=== PATIENT | female | born 1980 | race Caucasian/White ===

== ENCOUNTER 2020-03-14 05:39 | Inpatient (IN) | payer BC ==
[~2020-03-14] VITALS: Ht 162.6 cm; Wt 61.2 kg
[2020-03-14] VITALS (27 sets, daily range): BP systolic 96–121; BP diastolic 54–75
[~2020-03-14 05:39] MED LIST: NO HOME MEDS; ceFAZolin 1GM/D5W- ADD-VANTAGE 50 ML IV ONE; famotidine 20mg tablet PO ONE; ringers solution, lacted 1,000 ML IV SCH
[2020-03-14] MEDS ORDERED: LIDOcaine 1% (10mg/ml) 2ml vial ONE (05:52)
[2020-03-14 06:32] LABS: BASOPHILS % (AUTO) 0.7 % (0-1); EOSINOPHILS # (AUTO) 0.1 X10'3 (0-0.9); EOSINOPHILS % (AUTO) 1.9 % (0-6); LYMPHOCYTES # (AUTO) 2.2 X10'3 (1.1-4.8); LYMPHOCYTES % (AUTO) 38.7 % (21-51); MEAN CORPUSCULAR HEMOGLOBIN 30.7 PG (27.0-31.0); MEAN CORPUSCULAR HGB CONC 34.2 g/dL (33.0-36.5); MEAN CORPUSCULAR VOLUME 89.7 FL (78-98); MEAN PLATELET VOLUME 7.2 FL (7.4-10.4); MONOCYTES # (AUTO) 0.4 X10'3 (0-0.9); NEUTROPHILS # (AUTO) 2.9 X10'3 (1.8-7.7); NEUTROPHILS % (AUTO) 51.7 % (42-75); PRE OP HEMATOCRIT 43.2 % (35.0-45.0); PRE OP HEMOGLOBIN 14.8 g/dL (12.0-16.0); PRE OP PLATELET COUNT 264 X10'3 (140-440); RED BLOOD COUNT 4.81 X10'6 (4.20-5.60); RED CELL DISTRIBUTION WIDTH 13.1 % (11.5-14.5)
[2020-03-14 06:41] LABS: PRE OP PROTIME 10.8 SECONDS (9.0-12.0)
[2020-03-14 06:45] LABS: ALBUMIN/GLOBULIN RATIO 1.3 (1.1-1.5); ALKALINE PHOSPHATASE 63 IU/L (46-116); BLOOD UREA NITROGEN 18 MG/DL (7-18); BUN/CREATININE RATIO 18.6 (6.6-38.0); CHLORIDE 107 MMOL/L (99-107); CREATININE 0.97 MG/DL (0.40-0.90); PRE OP ALT 14 U/L (30-65); PRE OP ANION GAP 9 (8-16); PRE OP AST 13 U/L (10-37); PRE OP BILIRUB, TOTAL 0.4 MG/DL (0.0-1.0); PRE OP GLUCOSE 87 MG/DL (70-104); PRE OP POTASSIUM 3.5 MMOL/L (3.4-5.1); PRE OP SODIUM 143 MMOL/L (135-145); TOTAL CARBON DIOXIDE 27.2 MMOL/L (24-32); TOTAL PROTEIN 7.2 G/DL (6.4-8.2); eGFR 65 ML/MIN
[2020-03-14] MEDS ORDERED: BUPIVAcaine/PF 2.5 mg/ml (0.25%) 30ml vial ONE (06:57)
[2020-03-14] MEDS ORDERED: BUPIVACAINE liposomal/PF 13.3 MG/ML vial IM ONE (06:57)
[2020-03-14] MEDS ORDERED: midazolam 2 mg/2 ml injection ONE (07:01)
[2020-03-14] MEDS ORDERED: fentaNYL /PF 50mcg/ml 5ml ampule ONE (07:06)
[2020-03-14] MEDS ORDERED: sevoflurane 250ml liquid IH ONE (07:12)
[2020-03-14] MEDS ORDERED: ringers solution, lacted 1,000 ML IV SCH (07:14)
[2020-03-14] MEDS ORDERED: ondansetron/PF 4mg/2ml inj IV PRN (07:15)
[2020-03-14] MEDS ORDERED: meperidine/PF 25mg/ml syringe IV PRN ×2 (07:15)
[2020-03-14] MEDS ORDERED: acetaminophen 1,000mg/100ml IV 100 ML IV PRN (07:15)
[2020-03-14] MEDS ORDERED: HYDROmorphone inj. 0.5 MG/0.5 ML DISP.SYRIN IV PRN ×2 (07:15)
[2020-03-14] MEDS ORDERED: proCHLORperazine 10 MG/2 ml inj IV PRN (07:15)
[2020-03-14] MEDS ORDERED: propofol inj 20 ML IV ONE (07:49)
[2020-03-14] MEDS ORDERED: LIDOcaine 1%/PF 5ML 10 MG/ML VIAL ONE (07:49)
[2020-03-14] MEDS ORDERED: LIDOcaine 2% 5ml jelly ONE (07:49)
[2020-03-14] MEDS ORDERED: rocuronium 10mg/ml inj IV ONE (07:49)
[2020-03-14] MEDS ORDERED: dexamethasone sod phosphate 4mg/ml inj. ONE (07:54)
[2020-03-14] MEDS ORDERED: ondansetron/PF 4mg/2ml inj ONE (07:54)
[2020-03-14] MEDS ORDERED: glycopyrrolate 0.2mg/ml inj ONE (10:34)
[2020-03-14] MEDS ORDERED: neostigmine methylsulfate 1 MG/ML 10ml vial ONE (10:34)
[2020-03-14] MEDS ORDERED: LIDOcaine 2% 10ml TOPICAL JELLY (Urojet) TP ONE (10:50)
[2020-03-14] MEDS: dextrose 5%-1/2 normal saline 1,000 ML IV SCH ×3 (10:50→20:23)
[2020-03-14] MEDS ORDERED: ondansetron 4mg rapidly disintigrating tab PO PRN (10:50)
--- NOTE | 2020-03-14 10:59 | NUR ---
Received from OR via BED, accompanied by Anesthesiologist DR BARRIOS and report given by Anesthesiologist. PT VERY DROWSY, NO S/S OF DISTRESS/DISCOMFORT, LEFT UPPER ABDOMEN W/3 LAP SITES W/BANDAIDS CDI, 1 [facility] CDI, VERDUGO CATHETER TO GRAVITY DRAINAGE W/LIGHT YELLOW URINE IN DRAINAGE BAG/TUBING. Addendum: 03/14/20 at 1125 by Keeley Lucio RN Amended: Links added.
[2020-03-14] MEDS: meperidine/PF 25mg/ml syringe IV PRN ×2 (11:30→11:48)
[2020-03-14] MEDS ORDERED: [UNRECOGNIZED DRUG - OTHER] PO (12:58)
[2020-03-14] MEDS ORDERED: ZINC PO (12:58)
[2020-03-14] MEDS ORDERED: [UNRECOGNIZED DRUG - OTHER] PO (12:58)
[2020-03-14] MEDS ORDERED: TUMERIC GINGER PO (12:58)
[2020-03-14] MEDS ORDERED: SELENIUM PO (12:58)
[2020-03-14] MEDS ORDERED: ASCORBIC ACID PO (12:58)
--- NOTE | 2020-03-14 13:59 | NUR ---
Report called to receiving nurse. Transferred via BED, 1 LARGE PERSONAL Belongings BAG, CELL PHONE, [employer] SENT W/PT TO ROOM 348B, RECEIVING RN AT BEDSIDE TO RECEIVE PT, BLL, CALL LIGHT GIVEN, SIDE RAILS UP X 2. Special Issues communicated to receiving nurse. YES. Addendum: 03/14/20 at 1414 by Keeley Lucio RN Amended: Links added.
[2020-03-14] MEDS ORDERED: ketorolac trometh. 30mg/ml inj. IM ONE (16:55)
[2020-03-14] MEDS: HYDROmorphone 1 mg/ml syringe IV PRN ×2 (17:18→20:46)
--- NOTE | 2020-03-14 18:26 | NUR ---
Patient in room [facility]. I have received report from Jay TEE and had the opportunity to ask questions and assume patient care.
--- NOTE | 2020-03-14 18:34 | NUR ---
Patient in room [facility]. I have received report from Kylah TEE and had the opportunity to ask questions and assume patient care.
[2020-03-15 00:12] VITALS: BP 103/60
[2020-03-15] MEDS: HYDROmorphone 1 mg/ml syringe IV PRN ×6 (05:33→22:24)
--- NOTE | 2020-03-15 07:02 | NUR ---
Dc'd simons catheter at 0700 . Emptied another 25cc yellow urine. Pt. tolerated well. Reported off to Larisa TEE.
[2020-03-15 08:00] VITALS: BP 96/59
[2020-03-15] MEDS ORDERED: tamsulosin 0.4mg capsule PO ONE (10:30)
[2020-03-15] MEDS: ondansetron/PF 4mg/2ml inj IV PRN ×2 (10:42→19:46)
[2020-03-15 11:49] VITALS: BP 103/66
--- NOTE | 2020-03-15 13:00 | NUR ---
PATIENT BLADDER SCANNED WITH 815ML IN BLADDER. WILL CONTINUE TO MONITOR.
[2020-03-15] MEDS: dextrose 5%-1/2 normal saline 1,000 ML IV SCH (13:10)
--- NOTE | 2020-03-15 15:14 | NUR ---
PAGER ID: [phone] MESSAGE: Maeve Boss [id number] : FYICamila....+MRSA in nares. thanks! Addendum: 03/15/20 at 1514 by Larisa Anthony RN WRONG PATIENT. PLEASE DISREGARD NOTE.
[2020-03-15] MEDS ORDERED: diazepam inj 5 MG/ML inj. IV ONE (16:30)
--- NOTE | 2020-03-15 16:30 | NUR ---
DR YEUNG AT BEDSIDE. ORDERED ONE TIME DOSE OF VALIUM. STATED THAT ONLY IF PATIENT BECOMES UNCOMFORTABLE CAN WE DO A STRAIGHT CATH X1. PATIENT ATTEMPTED TO VOID ONE MORE TIME BEFORE THE VALIUM WAS GIVEN AND WAS UNABLE TO DO SO.
--- NOTE | 2020-03-15 18:29 | NUR ---
Problems reprioritized. Patient report given, questions answered & plan of care reviewed with RANDAL MILLER.
--- NOTE | 2020-03-15 18:37 | NUR ---
Patient in room [facility]. I have received report from Larisa TEE and had the opportunity to ask questions and assume patient care.
[2020-03-15 20:00] VITALS: BP 102/64
--- NOTE | 2020-03-16 | NUR ---
I have called the office exchange for the on-call MD ojeda with no reply. Wanted to see if would like patient back on fluids as not drinking much and had been necessary to straight cath. Also wondering if would like AM labs drawn. Addendum: 03/16/20 at 0149 by Kylah Wilson RN MD Returned call and stated he did not want IV fluids reinstated, and to order AM labs CbC/CMP. Addendum: 03/16/20 at 0212 by Kylah Wilson RN Original on-call just called in. Informed him that questions had been addressed, thanked him, and wished him rylie.
[2020-03-16 00:11] VITALS: BP 107/66
[2020-03-16] MEDS: ondansetron/PF 4mg/2ml inj IV PRN ×2 (05:14→11:12)
[2020-03-16] MEDS: HYDROmorphone 1 mg/ml syringe IV PRN ×3 (05:17→14:25)
[2020-03-16 07:00] VITALS: BP 96/57
--- NOTE | 2020-03-16 07:00 | NUR ---
Patient in room [facility]. I have received report from RANDAL Montero and had the opportunity to ask questions and assume patient care.
[2020-03-16 07:10] LABS: BASOPHILS % (AUTO) 0.4 % (0-1); EOSINOPHILS % (AUTO) 0.5 % (0-6); HEMATOCRIT 37.3 % (35.0-45.0); HEMOGLOBIN 12.7 g/dl (12.0-16.0); LYMPHOCYTES # (AUTO) 1.2 X10'3 (1.1-4.8); LYMPHOCYTES % (AUTO) 16.2 % (21-51); MEAN CORPUSCULAR HEMOGLOBIN 30.7 PG (27.0-31.0); MEAN CORPUSCULAR VOLUME 90.4 FL (78-98); MEAN PLATELET VOLUME 7.2 FL (7.4-10.4); MONOCYTES # (AUTO) 0.4 X10'3 (0-0.9); NEUTROPHILS # (AUTO) 5.7 X10'3 (1.8-7.7); NEUTROPHILS % (AUTO) 76.9 % (42-75); PLATELET COUNT 210 X10'3 (140-440); RED BLOOD COUNT 4.13 X10'6 (4.20-5.60); RED CELL DISTRIBUTION WIDTH 12.7 % (11.5-14.5); WHITE BLOOD COUNT 7.4 X10'3 (4.5-11.0)
[2020-03-16 07:26] LABS: ALANINE AMINOTRANSFERASE 12 U/L (12-78); ALBUMIN/GLOBULIN RATIO 1.1 (1.1-1.5); ALKALINE PHOSPHATASE 44 IU/L (46-116); ANION GAP 5 (8-16); ASPARTATE AMINO TRANSFERASE 20 U/L (10-37); BILIRUBIN,TOTAL 0.5 MG/DL (0.1-1.0); BLOOD UREA NITROGEN 10 MG/DL (7-18); BUN/CREATININE RATIO 10.6 (6.6-38.0); CALCIUM 8.1 MG/DL (8.5-10.1); CHLORIDE 107 MMOL/L (99-107); CREATININE 0.94 MG/DL (0.40-0.90); GLUCOSE 94 MG/DL (70-104); POTASSIUM 3.3 MMOL/L (3.5-5.1); SODIUM 141 MMOL/L (135-145); TOTAL CARBON DIOXIDE 28.7 MMOL/L (24-32); TOTAL PROTEIN 5.8 G/DL (6.4-8.2); eGFR 67 ML/MIN
[2020-03-16 11:00] VITALS: BP 98/55
[2020-03-16] MEDS ORDERED: ondansetron 4mg rapidly disintigrating tab PO PRN (14:40)
[2020-03-16] MEDS ORDERED: HYDR-4383 PO (14:48)
[2020-03-16] MEDS: HYDROcodone/acetaminophen 5mg/325mg tablet PO PRN ×2 (15:31→20:17)
--- NOTE | 2020-03-16 18:39 | NUR ---
Problems reprioritized. Patient report given, questions answered & plan of care reviewed with RANDAL Cullen.
--- NOTE | 2020-03-16 18:40 | NUR ---
Patient in room [facility]. I have received report from MANNY TEE and had the opportunity to ask questions and assume patient care.
[2020-03-16 20:00] VITALS: BP 109/62
[2020-03-17] VITALS: BP 103/65
[2020-03-17] MEDS: HYDROcodone/acetaminophen 5mg/325mg tablet PO PRN ×2 (04:55→09:29)
--- NOTE | 2020-03-17 06:12 | NUR ---
Problems reprioritized. Patient report given, questions answered & plan of care reviewed with MANNY TEE.
--- NOTE | 2020-03-17 06:22 | NUR ---
Patient in room [facility]. I have received report from RANDAL Cullen and had the opportunity to ask questions and assume patient care.
[2020-03-17 08:02] VITALS: BP 104/69
--- NOTE | 2020-03-17 11:31 | NUR ---
D/C home per Dr Jackson. Pt in stable conditions. tolerating PO medication and voiding well. IV removed with cannula intact. Discharge and medication instructions given to pt. Pt was escorted to front lobby on w/c; left the hospital accompanied by via private vehicle.
== END 2020-03-17 11:20 | disposition home or self-care (01) | DRG 661 ==
LOC: UNDOADMIN 05:39 → PAS IN 05:39 → EDSTATUS 07:30 → PAS IN 10:46 → SUR 3N 13:58
PROVIDERS: ADMIT Urology; ATTEND Urology
PROC: 8E0W4CZ Robotic Assisted Procedure of Trunk Region, Percutaneous Endoscopic Approach (ICD-10-PCS; 2020-03-14)
PROC: 0TT14ZZ Resection of Left Kidney, Percutaneous Endoscopic Approach (ICD-10-PCS; principal; 2020-03-14 07:12)
DX: N13.5 Crossing vessel and stricture of ureter without hydronephrosis (principal)
CPT/HCPCS: Z7506; Z7508; 36415; 71046; 80053; 85025; 85610; 85730; 86885; 86900; 86901; 86920; 87081; 93005; A4215; A4618; A7000; C1758; C9290; G0378; J0131; J0690; J1100; J1170; J1885; J2001; J2175; J2250; J2405; J2704; J2710; J3010; J3360; J3490; J7120